=== PATIENT | female | born 1965 | race Caucasian/White ===

== ENCOUNTER 2020-10-12 14:38 | Emergency (ER) | payer OTHER ==
[2020-10-12] MEDS ORDERED: Lidocaine 1% with EPINEPHrine 1:100,000 10 ML MDV INJECT ONE (14:50)
--- NOTE | 2020-10-12 15:28 | EDM.PDOC ---
ED HPI GENERAL MEDICAL PROBLEM - General Chief Complaint: Laceration Stated Complaint: FALL Time Seen by Provider: 10/12/20 15:22 Source of Information: Reports: Patient History Limitations: Reports: No Limitations - History of Present Illness INITIAL COMMENTS - FREE TEXT/NARRATIVE: Patient presents with significant other for left anterior knee laceration occurred prior to arrival. Patient missed her step, fell foroward onto the wooden decking and caused a laceration to her left knee. She washed up at home however she notices contaminated wound along with having a large laceration. Tetanus is up-to-date 6 years ago. No concerns in the knee bony abnormality, patient walk without no problem no other injury. - Related Data Allergies Allergy/AdvReac Type Severity Reaction Status Date / Time No Known Allergies Allergy Verified 10/12/20 15:01 Past Medical History - Past Health History Medical/Surgical History: Denies Medical/Surgical History ED ROS GENERAL - Review of Systems Review Of Systems: Comprehensive ROS is negative, except as noted in HPI. Skin: Reports: Wound ED EXAM, SKIN/RASH Exam: See Below Exam Limited By: No Limitations General Appearance: Alert, WD/WN, No Apparent Distress Extremities: Normal Inspection, Normal Range of Motion, Non-Tender, Normal Capillary Refill, Other (Normal range of motion to her left knee no bony tenderness.). No: Leg Pain Skin: Warm, Dry, Wound/Incision, Other (Left laceration to the anterior tip of her knee stellate) ED SKIN PROCEDURES - Laceration/Wound Repair Left Anterior Knee Appearance: Stellate, Mildly Contaminated Distal NVT: Neuro & Vascular Intact Anesthetic Type: Local Local Anesthesia - Lidocaine (Xylocaine): 1% with EPI Local Anesthetic Volume: Other (7) Skin Prep: Providone-Iodine (Betadine) Saline Irrigation (cc's): 500 Exploration/Debridement/Repair: Wound Explored, In a Bloodless Field, Explored to Base, Foreign Material Removed, Wound Margins Revised Closed with: Sutures, Steri-Strips Lac/Wound length In cm: 3.5 Suture Size: 3-0 Suture Type: Prolene, Simple, Other (one corner stitch which approximated laceration nicely) Sterile Dressing Applied: Provider Tetanus Status Addressed: Yes Complications: No Progress/Comments: Return in 14 days for removal. I applied four 3-0 Prolene sutures 3 of those were simple interrupted and one was a corner stitch and one 4-0 Ethilon suture which was simple interrupted to reinforce it along with some Steri-Strips as it is on the knee joint and do not want to open up. Course - Orders/Labs/Meds Meds: Medications Discontinued Medications Generic Name Dose Route Start Last Admin Trade Name Chalino PRN Reason Stop Dose Admin Lidocaine/Epinephrine 10 ml 10/12/20 14:50 Lidocaine 1% With Epinephrine 1:100,000 10 Ml Mdv INJECT 10/12/20 14:51 ONETIME ONE Departure - Departure Time of Disposition: 15:23 Disposition: Home, Self-Care 01 Condition: Good Clinical Impression: Laceration of left knee Qualifiers: Encounter type: initial encounter Qualified Code(s): S81.012A - Laceration without foreign body, left knee, initial encounter - Discharge Information *PRESCRIPTION DRUG MONITORING PROGRAM REVIEWED*: No *COPY OF PRESCRIPTION DRUG MONITORING REPORT IN PATIENT PREETHI: No Instructions: Laceration Care, Adult Referrals: Blanco Cardoso MD [Primary Care Provider] - Forms: ED Department Discharge Additional Instructions: Return to the clinic in 14 days for suture removal. Do not wait anything longer than 14 days to have them removed apply bacitracin and keep it clean and dry with bandaid, open to air while in side in clean environment. Monitor for signs symptoms of infection.
== END 2020-10-12 15:35 | disposition home or self-care (01) ==
LOC: KA.ED 14:38
DX: S81.012A Laceration without foreign body, left knee, initial encounter (principal); W01.190A Fall on same level from slipping, tripping and stumbling with subsequent striking against furniture, initial encounter; Y92.009 Unspecified place in unspecified non-institutional (private) residence as the place of occurrence of the external cause
CPT/HCPCS: 12002; 99282-25; 99283